=== PATIENT | male | born 1960 | race African-American/Black ===

== ENCOUNTER 2016-06-12 09:13 | Emergency (ER) | payer OTHER | END 2016-06-12 11:12 | disposition home or self-care (01) | LOC: FER 09:13 | DX: M70.62 Trochanteric bursitis, left hip (principal) | CPT/HCPCS: 73502; J1885 ==

== ENCOUNTER 2016-09-04 19:44 | Emergency (ER) | payer OTHER ==
[2016-09-04 20:59] LABS: BASOPHIL 0.2 % (0-2); EOSINOPHIL 1.7 % (0-5); HCT 44.7 % (42.0-52.0); HGB 15.9 g/dl (13.2-18.0); LYMPHOCYTE 23.1 % (15-48); MCH 29.7 pg (25.0-31.0); MCHC 35.6 g/dL (32.0-36.0); MCV 83.4 fL (78.0-100.0); MONOCYTE 8.9 % (0-12); MPV 11.1 fL (6.0-9.5); NEUTROPHIL 66.1 % (41-80); PLT 211 K/uL (150-400); RBC 5.36 M/uL (4.70-6.00); RDW 12.9 % (11.5-14.0); WBC 8.6 K/uL (4.0-10.5)
[2016-09-04 21:03] LABS: BILIRUBIN NEGATIVE (NEGATIVE); BLOOD NEGATIVE Ery/uL (NEGATIVE); CLARITY CLEAR (CLEAR); COLOR COLORLESS (YELLOW); GLUCOSE (U) 3+ mg/dL (NORMAL); KETONE (U) NEGATIVE (NEGATIVE); LEUKOCYTES NEGATIVE Leu/uL (NEGATIVE); NITRITE NEGATIVE (NEGATIVE); PROTEIN NEGATIVE (NEGATIVE); SPECIFIC GRAVITY <=1.005 (1.001-1.030); UROBILINOGEN 0.2 mg/dL (0.2-1.0); pH 6.5 (5.0-9.0)
[2016-09-04 21:13] LABS: ALBUMIN 4.3 g/dL (3.5-5.0); BILIRUBIN - TOTAL 0.2 mg/dL (0.1-1.0); CREATININE 0.7 mg/dL (0.7-1.2); GLOBULIN (CALCULATION) 3.3 g/dL (2.2-4.2); POTASSIUM 4.4 mmol/L (3.5-5.1); TOTAL PROTEIN 7.6 g/dL (6.4-8.3)
[2016-09-05 00:43] LABS: CREATININE 0.6 mg/dL (0.7-1.2); POTASSIUM 3.4 mmol/L (3.5-5.1)
== END 2016-09-05 01:53 | disposition home or self-care (01) ==
LOC: FER 19:44
PROVIDERS: Emergency Medicine Emergency Medical Services
DX: E11.65 Type 2 diabetes mellitus with hyperglycemia (principal); E86.9 Volume depletion, unspecified; F17.210 Nicotine dependence, cigarettes, uncomplicated; Z79.84 Long term (current) use of oral hypoglycemic drugs
CPT/HCPCS: 36415; 36600; 71010; 80048; 80053; 81003; 82009; 82803; 84484; 85025; 93005

== ENCOUNTER 2016-11-26 18:02 | Emergency (ER) | payer OTHER ==
[2016-11-26 18:52] LABS: BASOPHIL 0.1 % (0-2); EOSINOPHIL 2.8 % (0-5); HCT 40.3 % (42.0-52.0); LYMPHOCYTE 25.3 % (15-48); MCH 29.7 pg (25.0-31.0); MCHC 34.7 g/dL (32.0-36.0); MCV 85.6 fL (78.0-100.0); MONOCYTE 7.9 % (0-12); MPV 11.2 fL (6.0-9.5); NEUTROPHIL 63.9 % (41-80); PLT 200 K/uL (150-400); RBC 4.71 M/uL (4.70-6.00); RDW 13.6 % (11.5-14.0); WBC 8.3 K/uL (4.0-10.5)
[2016-11-26 19:03] LABS: PROTHROMBIN TIME 12.3 SECONDS (11.4-13.2); PTT 25.8 SECONDS (24.3-32.1)
[2016-11-26 19:31] LABS: ALBUMIN 3.7 g/dL (3.5-5.0); BILIRUBIN - TOTAL 0.2 mg/dL (0.1-1.0); CREATININE 0.7 mg/dL (0.7-1.2); GLOBULIN (CALCULATION) 3.4 g/dL (2.2-4.2); MAGNESIUM 1.84 mg/dL (1.40-2.10); POTASSIUM 4.1 mmol/L (3.5-5.1); TOTAL PROTEIN 7.1 g/dL (6.4-8.3)
[2016-11-26 19:36] LABS: CKMB 1.73 ng/mL (0.97-4.94); MYOGLOBIN 21 ng/mL (26-65); TROPONIN T < 0.010 ng/mL
[2016-11-26 19:37] LABS: PRO-BNP 237 pg/mL (0-125)
== END 2016-11-26 22:00 | disposition home or self-care (01) ==
LOC: FER 18:02
PROVIDERS: Internal Medicine
DX: R07.89 Other chest pain (principal); E11.9 Type 2 diabetes mellitus without complications; Z79.84 Long term (current) use of oral hypoglycemic drugs; F17.210 Nicotine dependence, cigarettes, uncomplicated
CPT/HCPCS: 36415; 71010; 80053; 82550; 82553; 83735; 83874; 83880; 84484; 85025; 85610; 85730; 93005; C9113